=== PATIENT | female | born 1940 | race Caucasian/White ===

== ENCOUNTER 2020-06-17 14:41 | Emergency (ER) | payer MEDICARE ==
[~2020-06-17] VITALS: Ht 157.5 cm; Wt 100.0 kg
[~2020-06-17 14:41] MED LIST: ALEN70TA60 PO; IBUP-1985 PO; LISI-600 PO; SYN0.088T PO
[2020-06-17] MEDS ORDERED: normal saline 1000ml 1,000 ML IV ONE (15:00)
[2020-06-17] MEDS ORDERED: acetaminophen 325mg tablet PO ONE (15:35)
[2020-06-17 15:37] LABS: EOSINOPHILS % (AUTO) 0.5 % (0-6); HEMATOCRIT 38.9 % (35.0-45.0); HEMOGLOBIN 12.9 g/dl (12.0-16.0); LYMPHOCYTES # (AUTO) 0.4 X10'3 (1.1-4.8); LYMPHOCYTES % (AUTO) 14.7 % (21-51); MEAN CORPUSCULAR HEMOGLOBIN 29.8 PG (27.0-31.0); MEAN CORPUSCULAR HGB CONC 33.2 g/dL (33.0-36.5); MEAN CORPUSCULAR VOLUME 89.6 FL (78-98); MEAN PLATELET VOLUME 8.7 FL (7.4-10.4); MONOCYTES # (AUTO) 0.7 X10'3 (0-0.9); MONOCYTES % (AUTO) 23.9 % (2-12); NEUTROPHILS # (AUTO) 1.8 X10'3 (1.8-7.7); NEUTROPHILS % (AUTO) 59.9 % (42-75); PLATELET COUNT 170 X10'3 (140-440); RED BLOOD COUNT 4.34 X10'6 (4.20-5.60); RED CELL DISTRIBUTION WIDTH 13.2 % (11.5-14.5)
--- NOTE | 2020-06-17 15:40 | NUR ---
COVID +, edmd beahr notified.
[2020-06-17 15:47] LABS: ALANINE AMINOTRANSFERASE 15 U/L (12-78); ALBUMIN 3.5 G/DL (3.4-5.0); ALBUMIN/GLOBULIN RATIO 0.9 (1.1-1.5); ALKALINE PHOSPHATASE 67 IU/L (46-116); ANION GAP 14 (8-16); ASPARTATE AMINO TRANSFERASE 16 U/L (10-37); BILIRUBIN,TOTAL 0.4 MG/DL (0.1-1.0); BLOOD UREA NITROGEN 14 MG/DL (7-18); BUN/CREATININE RATIO 15.7 (6.6-38.0); CALCIUM 8.7 MG/DL (8.5-10.1); CHLORIDE 102 MMOL/L (99-107); CREATININE 0.89 MG/DL (0.40-0.90); GLUCOSE 120 MG/DL (70-104); POTASSIUM 3.7 MMOL/L (3.5-5.1); SODIUM 139 MMOL/L (135-145); TOTAL PROTEIN 7.6 G/DL (6.4-8.2); eGFR 62 ML/MIN
[2020-06-17 15:58] LABS: PLATELET ESTIMATE NORMAL; TOTAL CELLS COUNTED 100
[2020-06-17 16:00] VITALS: BP 141/81
--- NOTE | 2020-06-17 16:33 | NUR ---
attempting to arrange transportation back to [facility] board & care off [address] in [place]. Spoke with Pilar ([phone]) who is a CG in [address] 5 homes. She redirected me to Veronica ([phone]) who indicated pt is not in the home sheoversees, forwarding further to [employer] Osiris @ ([phone]). Left a VM as none answered requesting ED call back.
--- NOTE | 2020-06-17 17:32 | NUR ---
[facility] Adminstrator Linda ([phone]) returned call. She was informed of pt's Covid + status and stated [facility] was the transporation mode. Paul, unit assembler contacted [facility] to determine whether they would transport known Covid + pt, which they do, but for a surcharge. DELPHINE Langleycarmenza updated on status.
--- NOTE | 2020-06-17 18:08 | NUR ---
Pt gave verbal consent to update daughter Rin Guzman ([phone]) on her status, which was done. Per Rin, she has kendrick authority associated with pt. She was updated on [facility] transport chargers including Covid + surcharjunaid, which she ok'd along with our passing on her contact info to [facility]. Rin lives locally and has a sister, Radha Nieves ([phone]) at she requested be put on pt demographics data. Registration updated with this data.
== END 2020-06-17 16:05 | disposition home or self-care (01) ==
LOC: ER 14:41
DX: U07.1 COVID-19 (principal); R53.1 Weakness; I10 Essential (primary) hypertension; Z87.442 Personal history of urinary calculi; Z79.899 Other long term (current) drug therapy
CPT/HCPCS: 36415; 71045; 80053; 83605; 84145; 85007; 85025; 87040; 87635; 93005; 99285; C9803

== ENCOUNTER 2020-06-25 18:19 | Emergency (ER) | payer MEDICARE ==
[~2020-06-25] VITALS: Ht 157.5 cm; Wt 72.7 kg
[~2020-06-25 18:19] MED LIST changes: -LISI-600 PO; +LISI20TA28 PO
[2020-06-25 19:58] LABS: BASOPHILS % (AUTO) 0.5 % (0-1); EOSINOPHILS % (AUTO) 0.3 % (0-6); HEMATOCRIT 37.1 % (35.0-45.0); HEMOGLOBIN 12.6 g/dl (12.0-16.0); LYMPHOCYTES # (AUTO) 1.1 X10'3 (1.1-4.8); LYMPHOCYTES % (AUTO) 23.1 % (21-51); MEAN CORPUSCULAR HEMOGLOBIN 29.9 PG (27.0-31.0); MEAN PLATELET VOLUME 8.8 FL (7.4-10.4); MONOCYTES # (AUTO) 0.7 X10'3 (0-0.9); NEUTROPHILS # (AUTO) 2.9 X10'3 (1.8-7.7); NEUTROPHILS % (AUTO) 61.1 % (42-75); PLATELET COUNT 172 X10'3 (140-440); RED BLOOD COUNT 4.21 X10'6 (4.20-5.60); RED CELL DISTRIBUTION WIDTH 13.1 % (11.5-14.5); WHITE BLOOD COUNT 4.8 X10'3 (4.5-11.0)
[2020-06-25 20:14] LABS: ALANINE AMINOTRANSFERASE 28 U/L (12-78); ALBUMIN 3.3 G/DL (3.4-5.0); ALBUMIN/GLOBULIN RATIO 0.8 (1.1-1.5); ALKALINE PHOSPHATASE 61 IU/L (46-116); ANION GAP 10 (8-16); ASPARTATE AMINO TRANSFERASE 48 U/L (10-37); BILIRUBIN,TOTAL 0.7 MG/DL (0.1-1.0); BLOOD UREA NITROGEN 10 MG/DL (7-18); BUN/CREATININE RATIO 14.9 (6.6-38.0); CALCIUM 9.2 MG/DL (8.5-10.1); CHLORIDE 104 MMOL/L (99-107); CREATININE 0.67 MG/DL (0.40-0.90); GLUCOSE 121 MG/DL (70-104); POTASSIUM 3.4 MMOL/L (3.5-5.1); SODIUM 137 MMOL/L (135-145); TOTAL CARBON DIOXIDE 22.6 MMOL/L (24-32); TOTAL PROTEIN 7.4 G/DL (6.4-8.2); eGFR 85 ML/MIN
[2020-06-25] MEDS ORDERED: BAMLANIVIMAB INJECTION 700 MG in normal saline 250ml IV soln 250 ML IV ONE (20:20)
[2020-06-25] MEDS ORDERED: potassium Cl 20 mEq SR tablet PO STA (20:22)
[2020-06-25 20:25] LABS: MAGNESIUM 1.7 MG/DL (1.5-2.4)
[2020-06-25] MEDS ORDERED: magnesium oxide 400mg tablet PO ONE (20:25)
[2020-06-25 20:27] LABS: CLARITY,URINE SLIGHTLY CLOUDY (Clear); COLOR,URINE YELLOW (Yellow); GLUCOSE, URINE NEGATIVE (Neg); KETONES,URINE NEGATIVE (Neg); LEUKOCYTE ESTERASE ,URINE SMALL (Neg); NITRITES, URINE NEGATIVE (Neg); OCCULT BLOOD,URINE NEGATIVE (Neg); PROTEIN,URINE NEGATIVE (Neg); UROBILINOGEN,URINE 0.2 E.U/dL (0.2-1.0)
[2020-06-25 20:30] LABS: PARTIAL THROMBOPLASTIN TIME 27 SECONDS (22-32)
[2020-06-25 20:32] LABS: UA COLLECTION TYPE NON-SPECIFIED
[2020-06-25] MEDS ORDERED: magnesium 2GM in 50ml NS 50 ML IV ONE (20:35)
[2020-06-25] MEDS ORDERED: normal saline 1000ML IV soln IVB ONE (20:35)
[2020-06-25 20:36] LABS: BACTERIA,URINE 1+ /HPF (Neg); RBC,URINE NONE SEEN /HPF (0-2); SQUAMOUS EPITHELIAL CELL,UR FEW /LPF (FEW)
[2020-06-25] MEDS ORDERED: CEPH250T PO (21:40)
[2020-06-25] MEDS ORDERED: CefTRIAXone/D5W-Rocephin 1gm 50 ML IV ONE (21:40)
[2020-06-26 01:48] VITALS: BP 117/65
== END 2020-06-26 01:43 | disposition home or self-care (01) ==
LOC: ER 18:20
DX: U07.1 COVID-19 (principal); N39.0 Urinary tract infection, site not specified; E87.6 Hypokalemia; R53.1 Weakness; I10 Essential (primary) hypertension; Z87.442 Personal history of urinary calculi; Z79.2 Long term (current) use of antibiotics; Z79.899 Other long term (current) drug therapy
CPT/HCPCS: 36415; 71045; 80053; 81001; 83735; 83880; 84484; 85025; 85379; 85610; 85651; 85730; 86140; 87088; 93005; 96365; 96366; 96368; 99291; J0696; J3475; J7030; J7050; M0239; Q0239